=== PATIENT | female | born 1950 | race Caucasian/White ===

== ENCOUNTER 2023-04-09 13:41 | Outpatient (REF) | payer MEDICARE, SELFPAY ==
[2023-04-09 14:01] LABS: Abs Immature Grans 0.05 10^3/uL (0.0-0.06); Absolute Basophil Count 0.09 10^3/uL (0.0-0.2); Absolute Eosinophil Count 0.45 10^3/uL (0.0-0.7); Absolute Lymphocyte Count 1.22 10^3/uL (1.2-3.4); Absolute Monocyte Count 0.71 10^3/uL (0.1-0.8); Absolute Neutrophil Count 6.83 10^3/uL (1.2-6.7); Eosinophils % 4.8; HCT 38.9 % (36.0-46.0); HGB 12.7 g/dL (11.2-15.7); Immature Grans % 0.5; MCH 32.2 pg (27.0-33.0); MCHC 32.6 % (32.0-36.0); MCV 99 fL (80-95); MPV 10.5 fL (8.0-11.0); Monocytes % 7.6; Neutrophils % 73.1; Platelet Count 334 10^3/uL (130-400); RBC 3.94 10^6/uL (3.93-5.22); RDW 15.2 % (11.7-14.6); WBC 9.35 10^3/uL (4.4-10.8)
[2023-04-09 14:16] LABS: ALT 19 U/L (14-59); AST 25 U/L (15-37); Albumin 2.5 g/dL (3.4-5.0); Alkaline Phosphatase 91 U/L (46-116); Anion Gap 10.4 mmol/L (3-11); BUN 22 mg/dL (7-18); Bilirubin, Total 0.4 mg/dL (0.2-1.0); CO2 24.6 mmol/L (21.0-32.0); CREATININE 1.5 mg/dL (0.55-1.02); Calcium 9.3 mg/dL (8.5-10.1); Chloride 104 mmol/L (98-107); Estimated GFR 36.12 (mL/min/1.73m2); Glucose 109 mg/dL (74-106); Potassium 3.6 mmol/L (3.5-5.1); Sodium 139 mmol/L (136-145); Total Protein 5.8 g/dL (6.4-8.2)
== END 2023-04-09 13:42 | disposition home or self-care (01) ==
LOC: LBN 13:41
PROVIDERS: Visit Provider Internal Medicine Hematology & Oncology
DX: C20 Malignant neoplasm of rectum (principal)
CPT/HCPCS: 80053; 82378; 85025

== ENCOUNTER 2023-04-16 15:22 | Outpatient (REF) | payer MEDICARE, SELFPAY ==
[2023-04-16 15:15] LABS: Abs Immature Grans 0.03 10^3/uL (0.0-0.06); Absolute Basophil Count 0.07 10^3/uL (0.0-0.2); Absolute Eosinophil Count 0.44 10^3/uL (0.0-0.7); Absolute Lymphocyte Count 1.11 10^3/uL (1.2-3.4); Absolute Monocyte Count 0.51 10^3/uL (0.1-0.8); Absolute Neutrophil Count 4.43 10^3/uL (1.2-6.7); Basophils % 1.1; Eosinophils % 6.7; HCT 33.7 % (36.0-46.0); Immature Grans % 0.5; Lymphocytes % 16.8; MCH 32.9 pg (27.0-33.0); MCHC 32.6 % (32.0-36.0); MCV 101 fL (80-95); MPV 10.5 fL (8.0-11.0); Monocytes % 7.7; Neutrophils % 67.2; Platelet Count 324 10^3/uL (130-400); RBC 3.34 10^6/uL (3.93-5.22); RDW 15.3 % (11.7-14.6); RDW-SD 56.4 fL; WBC 6.59 10^3/uL (4.4-10.8)
[2023-04-16 15:41] LABS: ALT 20 U/L (14-59); AST 22 U/L (15-37); Albumin 2.2 g/dL (3.4-5.0); Alkaline Phosphatase 98 U/L (46-116); Anion Gap 8.6 mmol/L (3-11); BUN 31 mg/dL (7-18); Bilirubin, Total 0.5 mg/dL (0.2-1.0); CO2 24.4 mmol/L (21.0-32.0); CREATININE 1.4 mg/dL (0.55-1.02); Calcium 9.2 mg/dL (8.5-10.1); Chloride 109 mmol/L (98-107); Estimated GFR 39.23 (mL/min/1.73m2); Glucose 107 mg/dL (74-106); Potassium 3.8 mmol/L (3.5-5.1); Sodium 142 mmol/L (136-145); Total Protein 5.2 g/dL (6.4-8.2)
== END 2023-04-16 15:23 | disposition home or self-care (01) ==
LOC: LBN 15:22
PROVIDERS: Visit Provider Internal Medicine Hematology & Oncology
DX: C20 Malignant neoplasm of rectum (principal)
CPT/HCPCS: 80053; 85025

== ENCOUNTER 2023-04-23 18:43 | Outpatient (REF) | payer MEDICARE, SELFPAY ==
[2023-04-23 15:11] LABS: Abs Immature Grans 0.04 10^3/uL (0.0-0.06); Absolute Basophil Count 0.06 10^3/uL (0.0-0.2); Absolute Eosinophil Count 0.28 10^3/uL (0.0-0.7); Absolute Lymphocyte Count 0.84 10^3/uL (1.2-3.4); Absolute Monocyte Count 0.35 10^3/uL (0.1-0.8); Absolute Neutrophil Count 2.85 10^3/uL (1.2-6.7); Basophils % 1.4; Eosinophils % 6.3; HCT 34.3 % (36.0-46.0); HGB 11.3 g/dL (11.2-15.7); Immature Grans % 0.9; MCH 33.3 pg (27.0-33.0); MCHC 32.9 % (32.0-36.0); MCV 101 fL (80-95); MPV 9.6 fL (8.0-11.0); Monocytes % 7.9; Neutrophils % 64.5; Platelet Count 322 10^3/uL (130-400); RBC 3.39 10^6/uL (3.93-5.22); RDW 15.6 % (11.7-14.6); RDW-SD 56.4 fL; WBC 4.42 10^3/uL (4.4-10.8)
[2023-04-23 15:27] LABS: ALT 18 U/L (14-59); AST 20 U/L (15-37); Albumin 2.2 g/dL (3.4-5.0); Alkaline Phosphatase 118 U/L (46-116); Anion Gap 8.7 mmol/L (3-11); BUN 28 mg/dL (7-18); Bilirubin, Total 0.4 mg/dL (0.2-1.0); CO2 24.3 mmol/L (21.0-32.0); CREATININE 1.1 mg/dL (0.55-1.02); Calcium 8.9 mg/dL (8.5-10.1); Chloride 108 mmol/L (98-107); Glucose 98 mg/dL (74-106); Potassium 3.6 mmol/L (3.5-5.1); Sodium 141 mmol/L (136-145); Total Protein 5.6 g/dL (6.4-8.2)
== END 2023-04-23 18:44 | disposition home or self-care (01) ==
LOC: LBN 18:43
PROVIDERS: Visit Provider Internal Medicine Hematology & Oncology
DX: C20 Malignant neoplasm of rectum (principal)
CPT/HCPCS: 80053; 85025

== ENCOUNTER 2023-04-29 15:51 | Outpatient (REF) | payer MEDICARE, SELFPAY ==
[2023-04-29 16:30] LABS: Abs Immature Grans 0.04 10^3/uL (0.0-0.06); Absolute Basophil Count 0.05 10^3/uL (0.0-0.2); Absolute Lymphocyte Count 0.81 10^3/uL (1.2-3.4); Absolute Monocyte Count 0.65 10^3/uL (0.1-0.8); Absolute Neutrophil Count 5.21 10^3/uL (1.2-6.7); Basophils % 0.7; Eosinophils % 4.2; HCT 35.1 % (36.0-46.0); HGB 11.2 g/dL (11.2-15.7); Immature Grans % 0.6; Lymphocytes % 11.5; MCH 32.4 pg (27.0-33.0); MCHC 31.9 % (32.0-36.0); MCV 101 fL (80-95); MPV 9.7 fL (8.0-11.0); Monocytes % 9.2; Neutrophils % 73.8; Platelet Count 317 10^3/uL (130-400); RBC 3.46 10^6/uL (3.93-5.22); RDW 16.6 % (11.7-14.6); RDW-SD 57.2 fL; WBC 7.06 10^3/uL (4.4-10.8)
[2023-04-29 16:49] LABS: ALT 18 U/L (14-59); AST 17 U/L (15-37); Albumin 2.4 g/dL (3.4-5.0); Alkaline Phosphatase 171 U/L (46-116); Anion Gap 8.4 mmol/L (3-11); BUN 29 mg/dL (7-18); Bilirubin, Total 0.4 mg/dL (0.2-1.0); CO2 23.6 mmol/L (21.0-32.0); CREATININE 1.8 mg/dL (0.55-1.02); Chloride 109 mmol/L (98-107); Estimated GFR 29.02 (mL/min/1.73m2); Glucose 99 mg/dL (74-106); Potassium 3.4 mmol/L (3.5-5.1); Sodium 141 mmol/L (136-145); Total Protein 5.8 g/dL (6.4-8.2)
== END 2023-04-29 15:52 | disposition home or self-care (01) ==
LOC: LBN 15:51
PROVIDERS: Visit Provider Internal Medicine Hematology & Oncology
DX: C20 Malignant neoplasm of rectum (principal)
CPT/HCPCS: 80053; 85025

== ENCOUNTER 2023-05-10 15:48 | Outpatient (REF) | payer MEDICARE, SELFPAY ==
[2023-05-10 15:14] LABS: Abs Immature Grans 0.06 10^3/uL (0.0-0.06); Absolute Basophil Count 0.06 10^3/uL (0.0-0.2); Absolute Eosinophil Count 0.38 10^3/uL (0.0-0.7); Absolute Lymphocyte Count 0.65 10^3/uL (1.2-3.4); Absolute Monocyte Count 0.74 10^3/uL (0.1-0.8); Absolute Neutrophil Count 5.68 10^3/uL (1.2-6.7); Basophils % 0.8; HGB 11.9 g/dL (11.2-15.7); Immature Grans % 0.8; Lymphocytes % 8.6; MCH 34.5 pg (27.0-33.0); MCV 101 fL (80-95); MPV 10.4 fL (8.0-11.0); Monocytes % 9.8; Platelet Count 321 10^3/uL (130-400); RBC 3.45 10^6/uL (3.93-5.22); RDW 17.4 % (11.7-14.6); RDW-SD 63.9 fL; WBC 7.57 10^3/uL (4.4-10.8)
[2023-05-10 15:29] LABS: ALT 19 U/L (14-59); AST 23 U/L (15-37); Albumin 2.4 g/dL (3.4-5.0); Alkaline Phosphatase 170 U/L (46-116); Anion Gap 7.3 mmol/L (3-11); BUN 27 mg/dL (7-18); Bilirubin, Total 0.4 mg/dL (0.2-1.0); CO2 26.7 mmol/L (21.0-32.0); CREATININE 1.4 mg/dL (0.55-1.02); Chloride 105 mmol/L (98-107); Estimated GFR 39.23 (mL/min/1.73m2); Glucose 91 mg/dL (74-106); Potassium 3.5 mmol/L (3.5-5.1); Sodium 139 mmol/L (136-145); Total Protein 5.7 g/dL (6.4-8.2)
== END 2023-05-10 15:49 | disposition home or self-care (01) ==
LOC: LBN 15:48
PROVIDERS: Visit Provider Internal Medicine Hematology & Oncology
DX: C20 Malignant neoplasm of rectum (principal)
CPT/HCPCS: 80053; 85025

== ENCOUNTER 2023-05-20 13:54 | Outpatient (REF) | payer MEDICARE, SELFPAY ==
[2023-05-20 14:34] LABS: Abs Immature Grans 0.03 10^3/uL (0.0-0.06); Absolute Basophil Count 0.07 10^3/uL (0.0-0.2); Absolute Eosinophil Count 0.49 10^3/uL (0.0-0.7); Absolute Lymphocyte Count 0.49 10^3/uL (1.2-3.4); Absolute Monocyte Count 0.55 10^3/uL (0.1-0.8); Absolute Neutrophil Count 3.25 10^3/uL (1.2-6.7); Basophils % 1.4; HCT 30.7 % (36.0-46.0); HGB 9.8 g/dL (11.2-15.7); Immature Grans % 0.6; MCH 32.9 pg (27.0-33.0); MCHC 31.9 % (32.0-36.0); MCV 103 fL (80-95); Monocytes % 11.3; Neutrophils % 66.7; Platelet Count 329 10^3/uL (130-400); RBC 2.98 10^6/uL (3.93-5.22); RDW 17.7 % (11.7-14.6); RDW-SD 65.6 fL; WBC 4.88 10^3/uL (4.4-10.8)
[2023-05-20 14:52] LABS: ALT 16 U/L (14-59); AST 19 U/L (15-37); Albumin 1.9 g/dL (3.4-5.0); Alkaline Phosphatase 121 U/L (46-116); Anion Gap 7.8 mmol/L (3-11); BUN 22 mg/dL (7-18); Bilirubin, Total 0.3 mg/dL (0.2-1.0); CO2 25.2 mmol/L (21.0-32.0); CREATININE 1.3 mg/dL (0.55-1.02); Calcium 9.3 mg/dL (8.5-10.1); Chloride 111 mmol/L (98-107); Estimated GFR 42.88 (mL/min/1.73m2); Glucose 97 mg/dL (74-106); Potassium 4.2 mmol/L (3.5-5.1); Sodium 144 mmol/L (136-145); Total Protein 5.3 g/dL (6.4-8.2)
[2023-05-21 16:21] LABS: Ferritin 820 ng/mL (8-252)
== END 2023-05-20 13:55 | disposition home or self-care (01) ==
LOC: LBN 13:54
PROVIDERS: Visit Provider Internal Medicine Hematology & Oncology
DX: C20 Malignant neoplasm of rectum (principal)
CPT/HCPCS: 80053; 82728; 85025

== ENCOUNTER 2023-05-28 14:09 | Outpatient (REF) | payer MEDICARE, SELFPAY ==
[2023-05-28 14:19] LABS: Abs Immature Grans 0.04 10^3/uL (0.0-0.06); Absolute Basophil Count 0.06 10^3/uL (0.0-0.2); Absolute Eosinophil Count 0.48 10^3/uL (0.0-0.7); Absolute Lymphocyte Count 0.59 10^3/uL (1.2-3.4); Absolute Monocyte Count 0.44 10^3/uL (0.1-0.8); Absolute Neutrophil Count 3.52 10^3/uL (1.2-6.7); Basophils % 1.2; Eosinophils % 9.4; HCT 34.9 % (36.0-46.0); HGB 10.9 g/dL (11.2-15.7); Immature Grans % 0.8; Lymphocytes % 11.5; MCH 33.1 pg (27.0-33.0); MCHC 31.2 % (32.0-36.0); MCV 106 fL (80-95); MPV 9.9 fL (8.0-11.0); Monocytes % 8.6; Neutrophils % 68.5; Platelet Count 406 10^3/uL (130-400); RBC 3.29 10^6/uL (3.93-5.22); RDW 17.8 % (11.7-14.6); RDW-SD 69.4 fL; WBC 5.13 10^3/uL (4.4-10.8)
[2023-05-28 14:32] LABS: ALT 21 U/L (14-59); AST 22 U/L (15-37); Albumin 2.3 g/dL (3.4-5.0); Alkaline Phosphatase 116 U/L (46-116); Anion Gap 4.9 mmol/L (3-11); BUN 14 mg/dL (7-18); Bilirubin, Total 0.3 mg/dL (0.2-1.0); CO2 28.1 mmol/L (21.0-32.0); CREATININE 1.1 mg/dL (0.55-1.02); Chloride 111 mmol/L (98-107); Glucose 96 mg/dL (74-106); Potassium 3.6 mmol/L (3.5-5.1); Sodium 144 mmol/L (136-145); Total Protein 5.7 g/dL (6.4-8.2)
== END 2023-05-28 14:10 | disposition home or self-care (01) ==
LOC: LBN 14:09
PROVIDERS: Visit Provider Internal Medicine Hematology & Oncology
DX: C20 Malignant neoplasm of rectum (principal)
CPT/HCPCS: 80053; 85025